=== PATIENT | female | born 1995 | race Hispanic/Latino ===

== ENCOUNTER 2017-04-16 20:42 | Inpatient (IN) | payer MEDICAID ==
[2017-04-16] MEDS ORDERED: Sodium Chloride 0.9% 1,000 ML IV SCH ×2 (21:00→22:15)
[2017-04-16 21:11] LABS: ADD MANUAL DIFF? NO
[2017-04-16 21:17] LABS: BASO # 0.08 K/mm3 (0.0-2.0); EOS # 0.2 (0.0-0.7); GRAN # 4.09 (1.4-6.5); GRAN % 51.5 % (50.0-68.0); HEMATOCRIT 38.6 % (36.0-48.0); LYMPH % 37.3 % (22.0-35.0); MEAN CELL VOLUME 83.9 fL (80.0-105.0); MEAN CORPUSCULAR HEMOGLOBIN 28.7 pg (25.0-35.0); MEAN CORPUSCULAR HGB CONC 34.2 g/dl (31.0-37.0); MEAN PLATELET VOLUME 10.2 fl (7.0-11.0); MONO # 0.7 (0.1-0.6); MONO % 8.2 % (1.0-6.0); PLATELET COUNT 251 10^3/uL (120.0-450.0); RED CELL DISTRIBUTION WIDTH 13.3 % (11.5-14.5); WHITE BLOOD COUNT 7.9 10^3/ul (4.5-11.0)
--- NOTE | 2017-04-16 21:18 | ED PDOC ---
Arrival/HPI - General Chief Complaint: Psychiatric Evaluation Time Seen by Provider: 04/16/17 20:47 Historian: Patient - History of Present Illness Narrative History of Present Illness (Text): 04/16/17 21:13 Christina Ovalle is a 22 year old female, with a history of depression and anxiety, presents to the emergency department following an overdose on unknown amount of Buspar, Wellbutrin and Remeron an hour prior to arrival. Patient states she was feeling very depressed, and therefore overdosed on "handful" of medication. Denies any homicidal ideation. Denies any fever, chills, headache, dizziness, chest pain, shortness of breath, nausea, vomiting, or any other complaints at this time. Time/Duration: 1 hour Symptom Onset: Sudden Context: Home Past Medical History - Provider Review Nursing Documentation Reviewed: Yes - Cardiac Hx Cardiac Disorders: No - Pulmonary Hx Respiratory Disorders: No - Neurological Hx Neurological Disorder: No - HEENT Hx HEENT Disorder: No - Renal Hx Renal Disorder: No - Endocrine/Metabolic Hx Endocrine Disorders: No - Hematological/Oncological Hx Blood Disorders: No - Integumentary Hx Dermatological Disorder: No - Musculoskeletal/Rheumatological Hx Musculoskeletal Disorders: Yes Other/Comment: scoliosis - Gastrointestinal Hx Gastrointestinal Disorders: No - Genitourinary/Gynecological Hx Genitourinary Disorders: Yes Other/Comment: PCOS - Psychiatric Hx Psychophysiologic Disorder: Yes Hx Anxiety: Yes Hx Depression: Yes Hx Substance Use: No - Surgical History Hx Orthopedic Surgery: Yes (R ANKLE R/T FX) Family/Social History - Physician Review Nursing Documentation Reviewed: Yes Family/Social History: No Known Family HX Smoking Status: Never Smoked Hx Alcohol Use: Yes Frequency of alcohol use: Socially Hx Substance Use: No Allergies/Home Meds Allergies/Adverse Reactions: Allergies No Known Allergies Allergy (Verified 04/16/17 20:46) Home Medications: Home Meds Medication Instructions Recorded Confirmed Buspirone HCl [Buspirone HCl] 15 mg PO DAILY 04/16/17 04/16/17 Mirtazapine [Remeron] 15 mg PO DAILY 04/16/17 04/16/17 Review of Systems - Physician Review All systems were reviewed & negative as marked: Yes - Review of Systems Constitutional: Normal. absent: Fatigue, Fevers Respiratory: Normal. absent: SOB, Cough Cardiovascular: Normal. absent: Chest Pain, Palpitations Gastrointestinal: Normal. absent: Abdominal Pain, Diarrhea, Nausea, Vomiting Genitourinary Female: Normal Neurological: Normal. absent: Headache, Dizziness Psychiatric: Depression, Suicidal Ideation, Other (overdose ) Physical Exam Vital Signs Reviewed: Yes Vital Signs Temp Pulse Resp BP Pulse Ox 04/16/17 20:47 97.5 F L 88 16 99/65 L 98 Temperature: Afebrile Blood Pressure: Hypotensive Pulse: Regular Respiratory Rate: Normal Appearance: Positive for: Well-Appearing Pain Distress: None Mental Status: Positive for: Alert and Oriented X 3 - Systems Exam Head: Present: Atraumatic, Normocephalic Pupils: Present: PERRL Extroacular Muscles: Present: EOMI Conjunctiva: Present: Normal Mouth: Present: Moist Mucous Membranes Respiratory/Chest: Present: Clear to Auscultation, Good Air Exchange. No: Respiratory Distress, Accessory Muscle Use Cardiovascular: Present: Regular Rate and Rhythm, Normal S1, S2. No: Murmurs Abdomen: Present: Normal Bowel Sounds. No: Tenderness, Distention, Peritoneal Signs Upper Extremity: Present: Normal Inspection. No: Cyanosis, Edema Lower Extremity: Present: Normal Inspection. No: Edema Neurological: Present: GCS=15, CN II-XII Intact, Speech Normal, Motor Func Grossly Intact, Normal Sensory Function Skin: Present: Warm, Dry, Normal Color. No: Rashes Psychiatric: Present: Alert, Oriented x 3, Suicidal Ideation. No: Homicidal Ideation Medical Decision Making ED Course and Treatment: 04/16/17 21:19 Impression: A 22 year old female who presents to the emergency department for overdose. Plan: -- EKG -- Alcohol level -- Drug Screen -- Actidose -- IV fluids -- HCG -- Urinalysis -- Reassess and disposition Progress Notes: 04/16/17 21:20 Case discussed with Poison control. Recommends repeat EKG every 4 hours, and administer activated charcoal. EKG reviewed by me: NSR @ 98 bpm. Possible left atrial enlargement. 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 Accepts patient under hospitalist service. - Lab Interpretations Lab Results: 04/16/17 21:05 04/16/17 21:05 Lab Results 04/16/17 21:05: Phosphorus 3.8, Magnesium 2.2, Total Creatine Kinase 71 04/16/17 21:05: Alcohol, Quantitative < 10 04/16/17 21:05: Salicylates < 1 L, Acetaminophen < 10.0 L 04/16/17 21:05: Sodium 141, Potassium 3.0 L, Chloride 107, Carbon Dioxide 23, Anion Gap 14, BUN 12, Creatinine 0.7, Est GFR ( Amer) > 60, Est GFR (Non- Af Amer) > 60, Random Glucose 118 H, Calcium 9.7, Total Bilirubin 0.5, AST 23, ALT 25, Alkaline Phosphatase 41, Total Protein 7.7, Albumin 4.7, Globulin 3.0, Albumin/Globulin Ratio 1.6 04/16/17 21:05: WBC 7.9, RBC 4.60, Hgb 13.2, Hct 38.6, MCV 83.9, MCH 28.7, MCHC 34.2, RDW 13.3, Plt Count 251, MPV 10.2, Gran % 51.5, Lymph % (Auto) 37.3 H, [place] % (Auto) 8.2 H, Eos % (Auto) 2.0, Baso % (Auto) 1.0, Gran # 4.09, Lymph # 3.0, [place] # 0.7 H, Eos # 0.2, Baso # 0.08 I have reviewed the lab results: Yes - EKG Interpretation Interpreted by ED Physician: Yes Type: 12 lead EKG - Medication Orders Current Medication Orders: Sodium Chloride (Sodium Chloride 0.9%) 1,000 mls @ 150 mls/hr IV .[id number] [facility] Last Admin: 04/17/17 05:19 Dose: 150 mls/hr Lorazepam (Ativan) 2 mg IVP Q2H PRN; Protocol PRN Reason: Rigors Ondansetron HCl (Zofran Inj) 4 mg IVP Q6H PRN PRN Reason: Nausea/Vomiting Discontinued Medications Charcoal (Actidose 50 Gm/240 Ml Susp) 50 gm PO STAT STA Stop: 04/16/17 21:20 Last Admin: 04/16/17 21:30 Dose: 50 gm Charcoal/Sorbitol (Actidose/Sorbitol 50gm/240 Ml Susp) Confirm Administered Dose 50 gm .ROUTE .STK-MED ONE Stop: 04/16/17 21:27 Last Admin: 04/16/17 22:10 Dose: Sodium Chloride (Sodium Chloride 0.9%) 1,000 mls @ 1,000 mls/hr IV .Q1H SUJEY Last Admin: 04/16/17 21:08 Dose: 1,000 mls/hr Potassium Chloride (Potassium Chloride 20 Meq/100 Ml) 20 meq in 100 mls @ 50 mls/hr IVPB ONCE ONE Stop: 04/16/17 23:28 Last Admin: 04/16/17 22:51 Dose: Sodium Chloride (Sodium Chloride 0.9%) 1,000 mls @ 100 mls/hr IV .Q10H SUJEY Potassium Chloride (Potassium Chloride 10 Meq/100 Ml) 10 meq in 100 mls @ 100 mls/hr IVPB Q2H SUJEY Stop: 04/17/17 01:29 Last Admin: 04/17/17 00:57 Dose: 100 mls/hr Pantoprazole Sodium (Protonix Inj) 40 mg IVP STAT STA Stop: 04/16/17 22:15 Last Admin: 04/16/17 23:06 Dose: 40 mg Potassium Chloride (Potassium Chloride Oral Soln) 20 meq PO STAT STA Stop: 04/16/17 22:25 Last Admin: 04/16/17 23:07 Dose: 20 meq - Solomonibe Statement The provider has reviewed the documentation as recorded by the Nicky Esquivel Provider Attestation: All medical record entries made by the Nicky were at my direction and personally dictated by me. I have reviewed the chart and agree that the record accurately reflects my personal performance of the history, physical exam, medical decision making, and the department course for this patient. I have also personally directed, reviewed, and agree with the discharge instructions and disposition. Disposition/Present on Arrival - Present on Arrival Any Indicators Present on Arrival: No History of DVT/PE: No History of Uncontrolled Diabetes: No Urinary Catheter: No History of Decub. Ulcer: No History Surgical Site Infection Following: None - Disposition Have Diagnosis and Disposition been Completed?: Yes Diagnosis: Overdose of antidepressant Disposition: HOSPITALIZED Disposition Time: 21:45 Condition: FAIR
[2017-04-16] MEDS ORDERED: Charcoal 50 gm/240 ml Susp PO STA (21:19)
[2017-04-16 21:26] LABS: ALB/GLOB RATIO 1.6 (1.1-1.8); ALKALINE PHOSPHATASE 41 U/L (38-133); ALT/SGPT 25 U/L (7-56); AST/SGOT 23 U/L (15-39); BILIRUBIN,TOTAL 0.5 mg/dL (0.2-1.3); BLOOD UREA NITROGEN 12 mg/dL (7-21); CALCIUM 9.7 mg/dL (8.4-10.5); CARBON DIOXIDE 23 mmol/L (21-33); CHLORIDE 107 mmol/L (98-107); GFR AFRICAN-AMERICAN > 60; GLUCOSE,RANDOM 118 mg/dL (70-110); SODIUM 141 mmol/L (132-148); TOTAL PROTEIN 7.7 g/dL (5.8-8.3)
--- NOTE | 2017-04-16 22:07 | CP.PCM.HP ---
History of Present Illness - History of Present Illness History of Present Illness: Reason for ICU evaluation/CC: intentional drug overdose with suidical ideation HPI: 22 y/o female who presents to the ED after taking a "handful" unknown amount of her depression medications which include Buspar, Wellbutrin and Remeron. Patient states she wanted to harm herself and felt really depressed however would not elaborate on what caused her to feel depressed and take a handful of her medications. She denies any previous suicide attempts or attempts to harm herself. She took the pills at approximately 8:00pm (slightly one hour prior to my seeing her in the ED). She offers complaints of feeling nauseous and having fine tremors after taking all the pills otherwise denies any complaints of chest pain, palpitations, abdominal pain, shortness of breath , headache, fever or diarrhea. She has just gotten finished drinking her activated charcoal as I approached her bedside. PMHx: Major Depressive disorder Allergies: NKDA Fam Hx: Father and paternal grandfather - Lung Cancer; Father with DM Meds: Buspar 15mg po daily Wellbutrin 150mg po bid Remeron 15mg po daily Soc Hx: denies tobacco use; social etoh use; denies illicit drug use Present on Admission - Present on Admission Any Indicators Present on Admission: No Review of Systems - Review of Systems Review of Systems: As per HPI otherwise negative for 12 point ROS Past Patient History - Past Social History Smoking Status: Never Smoked Chewing Tobacco Use: No Cigar Use: No Alcohol: Social Drugs: Denies - CARDIAC Hx Cardiac Disorders: No - PULMONARY Hx Respiratory Disorders: No - NEUROLOGICAL Hx Neurological Disorder: No - HEENT Hx HEENT Problems: No - RENAL Hx Chronic Kidney Disease: No - ENDOCRINE/METABOLIC Hx Endocrine Disorders: No - HEMATOLOGICAL/ONCOLOGICAL Hx Blood Disorders: No - INTEGUMENTARY Hx Dermatological Problems: No - MUSCULOSKELETAL/RHEUMATOLOGICAL Hx Musculoskeletal Disorders: Yes Other/Comment: scoliosis - GASTROINTESTINAL Hx Gastrointestinal Disorders: No - GENITOURINARY/GYNECOLOGICAL Hx Genitourinary Disorders: Yes Other/Comment: PCOS - PSYCHIATRIC Hx Psychophysiologic Disorder: Yes Hx Anxiety: Yes Hx Depression: Yes Hx Substance Use: No - SURGICAL HISTORY Hx Orthopedic Surgery: Yes (R ANKLE R/T FX) Meds Allergies/Adverse Reactions: Allergies Allergy/AdvReac Type Severity Reaction Status Date / Time No Known Allergies Allergy Verified 04/16/17 20:46 Physical Exam - Constitutional Appears: Non-toxic, No Acute Distress - Head Exam Head Exam: ATRAUMATIC, NORMOCEPHALIC - Eye Exam Eye Exam: EOMI Pupil Exam: Mydriatic, PERRL - ENT Exam ENT Exam: Mucous Membranes Moist, Normal Exam - Neck Exam Neck exam: Positive for: Normal Inspection - Respiratory Exam Respiratory Exam: Clear to Auscultation Bilateral, NORMAL BREATHING PATTERN. absent: Rhonchi, Wheezes, Respiratory Distress - Cardiovascular Exam Cardiovascular Exam: Tachycardia, +S1, +S2 - GI/Abdominal Exam GI & Abdominal Exam: Normal Bowel Sounds. absent: Guarding, Rebound, Tenderness - Rectal Exam Rectal Exam: Deferred - Extremities Exam Extremities exam: Positive for: normal inspection. Negative for: calf tenderness - Neurological Exam Neurological exam: Alert, CN II-XII Intact, Oriented x3, Reflexes Normal - Psychiatric Exam Psychiatric exam: Depressed, Flat Affect - Skin Skin Exam: Dry, Intact, Normal Color, Warm Results - Vital Signs Recent Vital Signs: Last Vital Signs Temp 97.5 F L 04/16/17 20:47 Pulse 88 04/16/17 20:47 Resp 16 04/16/17 20:47 BP 99/65 L 04/16/17 20:47 Pulse Ox 98 04/16/17 20:47 - Labs Result Diagrams: 04/16/17 21:05 04/16/17 21:05 Labs: Laboratory Results - last 24 hr 04/16/17 04/16/17 04/16/17 21:05 21:05 21:05 WBC 7.9 RBC 4.60 Hgb 13.2 Hct 38.6 MCV 83.9 MCH 28.7 MCHC 34.2 RDW 13.3 Plt Count 251 MPV 10.2 Gran % 51.5 Lymph % (Auto) 37.3 H [place] % (Auto) 8.2 H Eos % (Auto) 2.0 Baso % (Auto) 1.0 Gran # 4.09 Lymph # 3.0 [place] # 0.7 H Eos # 0.2 Baso # 0.08 Sodium 141 Potassium 3.0 L Chloride 107 Carbon Dioxide 23 Anion Gap 14 BUN 12 Creatinine 0.7 Est GFR ( Amer) > 60 Est GFR (Non-Af Amer) > 60 Random Glucose 118 H Calcium 9.7 Total Bilirubin 0.5 AST 23 ALT 25 Alkaline Phosphatase 41 Total Protein 7.7 Albumin 4.7 Globulin 3.0 Albumin/Globulin Ratio 1.6 Salicylates < 1 L Acetaminophen < 10.0 L Alcohol, Quantitative 04/16/17 21:05 WBC RBC Hgb Hct MCV MCH MCHC RDW Plt Count MPV Gran % Lymph % (Auto) [place] % (Auto) Eos % (Auto) Baso % (Auto) Gran # Lymph # [place] # Eos # Baso # Sodium Potassium Chloride Carbon Dioxide Anion Gap BUN Creatinine Est GFR ( Amer) Est GFR (Non-Af Amer) Random Glucose Calcium Total Bilirubin AST ALT Alkaline Phosphatase Total Protein Albumin Globulin Albumin/Globulin Ratio Salicylates Acetaminophen Alcohol, Quantitative < 10 - EKG Data EKG Interpreted by: Myself EKG shows normal: Sinus rhythm (NSR @ 98 bpm; QTc 469) Assessment & Plan - Assessment and Plan (Free Text) Assessment: 22 y/o female with a PMHx MDE presents to the ED after attempting suicide by pill ingestion using her depression medications. Patient will be kept in the ICU overnight for further monitoring and care. Plan: Neuro: AAOx3; no neurological deficits, patient is responsive and does not appear stuporous or lethargic; will monitor neurochecks Q4h Pulm: protecting her airway; saturating well on room air, will monitor for now CVS: slight tachycardia (sinus) noted; QTc is 469, will obtain EKG's Q4h to assess for any QT prolongation as recommended by Poison control (Nurse Howie Durand spoke w/Poison control who recommended activated charcoal, Ativan prn agitation or serotonin syndrome and close EKG monitoring for QT prolongation. Will place on IVF hydration with normal saline @ 150cc/hr GI: Patient given activated charcoal however has not vomited yet; will give a 1 time dose of protonix 40mg po and start her on a po diet for tomorrow Renal: will monitor i's and o's, daily bmp; electrolytes show hypokalemia of 3.0 , so we'll replace it with po and IV potassium. Heme: no acute issues at this time, will monitor daily cbc's ID: no acute issues at this time endo: Will check a TSH to r/o hypothyroidism Psych: 1:1 observation for suicidal ideation; psych consult with Dr. Hart. Will monitor for Serotonin Syndrome, currently only mild serotonin toxicity noted with tremors otherwise no large fasciculations or clonus that would classify as moderate/severe under the Didier Serotonin Toxicity scale; will give Ativan as needed and apply cooling blanket if she develops hyperthermia. Will check CK now and in the AM to rule out any potential for rhabdomyolysis. case discussed with Dr. Hutchins in detail all labs and images available thus far have been reviewed myself Total time of care: 45 minutes
[2017-04-16] MEDS ORDERED: Potassium Chloride 20 mEq/15 ml LIQ UD PO STA (22:24)
[2017-04-16 22:58] LABS: MAGNESIUM 2.2 mg/dL (1.7-2.2); PHOSPHOROUS 3.8 mg/dL (2.5-4.5)
[2017-04-16] MEDS: Sodium Chloride 0.9% 1,000 ML IV SCH (23:06)
[2017-04-17 00:29] VITALS: BMI 19.7
[2017-04-17] MEDS: Sodium Chloride 0.9% 1,000 ML IV SCH (05:19)
[2017-04-17 05:23] LABS: PH,URINE 7.5 (4.7-8.0); URINE BILIRUBIN NEGATIVE (NEGATIVE); URINE BLOOD LARGE (NEGATIVE); URINE GLUCOSE (UA) NEGATIVE (NEGATIVE); URINE KETONE NEGATIVE (NEGATIVE); URINE LEUKOCYTE ESTERASE TRACE Leu/uL (NEGATIVE); URINE PROTEIN NEGATIVE mg/dL (<30 mg/dL); URINE UROBILINOGEN 0.2 E.U./dL (<1 E.U./dL)
[2017-04-17 05:25] LABS: URINE APPEARANCE SL CLOUDY (CLEAR); URINE COLOR YELLOW (YELLOW)
[2017-04-17 05:32] LABS: URINE EPITHELIAL CELLS 0 - 2 /hpf (0-5)
[2017-04-17 05:34] LABS: URINE BACTERIA FEW (NEG)
[2017-04-17 06:19] LABS: ADD MANUAL DIFF? NO
[2017-04-17 06:23] LABS: BASO # 0.04 K/mm3 (0.0-2.0); BASO % 0.9 % (0.0-3.0); EOS % 0.9 % (1.5-5.0); GRAN # 3.18 (1.4-6.5); GRAN % 68.9 % (50.0-68.0); HEMATOCRIT 35.5 % (36.0-48.0); LYMPH % 21.7 % (22.0-35.0); MEAN CELL VOLUME 83.9 fL (80.0-105.0); MEAN CORPUSCULAR HEMOGLOBIN 28.1 pg (25.0-35.0); MEAN CORPUSCULAR HGB CONC 33.5 g/dl (31.0-37.0); MEAN PLATELET VOLUME 10.4 fl (7.0-11.0); MONO # 0.4 (0.1-0.6); MONO % 7.6 % (1.0-6.0); PLATELET COUNT 221 10^3/uL (120.0-450.0); RED CELL DISTRIBUTION WIDTH 13.5 % (11.5-14.5); WHITE BLOOD COUNT 4.6 10^3/ul (4.5-11.0)
[2017-04-17 06:32] LABS: INR 1.11 (0.93-1.08)
[2017-04-17 06:35] LABS: ALB/GLOB RATIO 1.6 (1.1-1.8); ALKALINE PHOSPHATASE 34 U/L (38-133); ALT/SGPT 26 U/L (7-56); AST/SGOT 19 U/L (15-39); BILIRUBIN,TOTAL 0.4 mg/dL (0.2-1.3); BLOOD UREA NITROGEN 6 mg/dL (7-21); CALCIUM 9.1 mg/dL (8.4-10.5); CARBON DIOXIDE 22 mmol/L (21-33); CHLORIDE 112 mmol/L (95-110); GFR AFRICAN-AMERICAN > 60; GLUCOSE,RANDOM 75 mg/dL (70-110); POTASSIUM 3.6 mmol/L (3.6-5.0); SODIUM 145 mmol/L (132-148); TOTAL PROTEIN 6.6 g/dL (5.8-8.3)
[2017-04-17] MEDS ORDERED: Sodium Chloride 0.9% 1,000 ML IV SCH (07:28)
[2017-04-17 08:26] LABS: MAGNESIUM 2.1 mg/dL (1.7-2.2); PHOSPHOROUS 4.7 mg/dL (2.5-4.5)
--- NOTE | 2017-04-17 09:09 | CON ---
DATE: 04/17/2017 The patient is seen and examined at bedside. This is a 22-year-old lady with history of polycystic ovary syndrome and depression who came to ICU last night with Wellbutrin overdose. The patient received charcoal treatment in ER and vomited. Her toxicology screen came back negative. Her electrolytes were supplemented. Her vital signs were monitored and were relatively stable except for mild tachycardia throughout the night. She is alert, awake and oriented. Her EKG did not show significant QTc prolongation and QRS widening. She had some minor twitching in the very beginning, however, not compatible with description of seizures as per nighttime nurse clinical. The patient did not have nausea, vomiting, diarrhea or constipation. No chest pain, no shortness of breath. No fever, chills, sweats. PAST MEDICAL HISTORY: Polycystic ovary syndrome, depression. MEDICATIONS AT HOME: BuSpar. ALLERGIES: NKDA. FAMILY HISTORY: Noncontributory. SOCIAL HISTORY: No alcohol or illicit drug abuse. No tobacco smoking. REVIEW OF SYSTEMS: Review of 12 organ systems, other than mentioned in history of present illness, is negative. PHYSICAL EXAMINATION: VITAL SIGNS: Heart rate 93, blood pressure 116/63, respiratory rate 18, oxygen saturation 98%. HEAD AND NECK: Atraumatic. LUNGS: Clear to auscultation bilaterally. HEART: Regular rate and rhythm. S1, S2 normal. ABDOMEN: Soft, nontender, nondistended. MUSCULOSKELETAL: No C/C/E. NEUROLOGIC: The patient moves all extremities spontaneously. SKIN: Moist. PSYCHIATRIC: The patient is alert and oriented x 3. Admits to having self- harm ideations that led to drug overdose. A 1:1 is ordered and psychiatry consult is pending. LABORATORIES: Sodium 145, potassium 3.6, chloride 112, carbon dioxide 22, BUN 6 , creatinine 0.6, glucose 75, AST 19, ALT 26. WBC 4.6, hemoglobin 11.9, platelet count 221. INR 111. MEDICATIONS: Ativan p.r.n., Zofran p.r.n., normal saline 150 mL per hour. EKG showed QTc 451, QRS 78, no specific ischemic changes, mild sinus tachycardia with heart rate 101. ASSESSMENT AND PLAN: This is a 22-year-old lady with depression on BuSpar, who was admitted with intentional drug overdose without significant complications. Her electrolytes within normal limits. QRS and QTc are not prolonged. There are no conduction abnormalities. The patient is alert and oriented x 3. No clinical signs of seizures. The patient is hemodynamically and respiratory quijano stable. Poison control was contacted. We will continue to target euvolemia, euglycemia, normothermia and oxygen saturation more than 90%. We will continue with deep venous thrombosis and gastrointestinal prophylaxis. We will continue with psychiatry consult and 1:1 observation until then. Okay to downgrade to med-surg. ccm time 40 min Rome Brewster MD cc: [id number] TT: 04/17/2017 09:08:41 Confirmation # [id number] Dictation # [id number] en MTDD
[2017-04-17] MEDS ORDERED: Potassium Chloride 20 mEq ER Tab PO ONE (09:14)
--- NOTE | 2017-04-17 13:43 | CP.PCM.PN ---
<Carlos Lebron - Last Filed: 04/17/17 13:31> Subjective - Date & Time of Evaluation Date of Evaluation: 04/17/17 Time of Evaluation: 10:00 - Subjective Subjective: Patient seen and examined with medical attending. Patient appears upset. Complains of mild abdominal pain. Denies headaches/dizziness, palpitations, chest pain, SOB, dysuria. No fasciculation or tremors noted. Denies n/v. Objective - Vital Signs/Intake and Output Vital Signs (last 24 hours): Temp Pulse Resp BP Pulse Ox 99.4 F 122 H 14 113/66 97 04/17/17 02:00 04/17/17 09:50 04/17/17 09:50 04/17/17 09:00 04/17/17 09:50 Intake and Output: 04/17/17 04/17/17 06:59 18:59 Intake Total 1250 Output Total 1100 Balance 150 - Medications Medications: Current Medications Sodium Chloride (Sodium Chloride 0.9%) 1,000 mls @ 75 mls/hr IV .[id number] SUJEY Last Admin: 04/17/17 07:33 Dose: 75 mls/hr Lorazepam (Ativan) 2 mg IVP Q2H PRN; Protocol PRN Reason: Rigors Ondansetron HCl (Zofran Inj) 4 mg IVP Q6H PRN PRN Reason: Nausea/Vomiting - Labs Labs: 04/17/17 05:20 04/17/17 05:20 PT 12.0 Seconds (9.9-11.8) H 04/17/17 05:20 INR 1.11 (0.93-1.08) H 04/17/17 05:20 APTT 25.0 Seconds (23.7-30.8) 04/17/17 05:20 - Constitutional Appears: Other (Sad) - Head Exam Head Exam: NORMOCEPHALIC - Eye Exam Eye Exam: EOMI - ENT Exam ENT Exam: Mucous Membranes Moist - Respiratory Exam Respiratory Exam: NORMAL BREATHING PATTERN - Cardiovascular Exam Cardiovascular Exam: Tachycardia, +S1, +S2 - GI/Abdominal Exam GI & Abdominal Exam: Soft. absent: Distended, Firm, Guarding, Rigid, Tenderness - Extremities Exam Extremities Exam: absent: Pedal Edema - Neurological Exam Neurological Exam: Alert, Awake, Oriented x3 - Psychiatric Exam Additional comments: Sad patient seen crying, stating she will not do this again - Skin Skin Exam: Normal Color, Warm Assessment and Plan - Assessment and Plan (Free Text) Assessment: 22F with a PMHx of major depressive disorder presents to the ED after attempting suicide by pill ingestion using her depression medications. Patient will be kept in the ICU overnight for further monitoring and care. Plan: 1. Major depressive disorder -Psychiatry consulted, recs appreciated -1:1 observation for suicidal ideation -Monitor for Serotonin Syndrome 2. Drug overdose, intoxication -As per Poison Control recommendations, serial EKGs done. -No apparent QTc prolongation -Creatine Kinase: 60 -Will monitor patient for 24 hours, if no acute events will clear patient medically for possible [place] [facility] [place] 3.Hypokalemia -resolved, replete prn 4.DVT ppx -SCDs Assessment and Plan discussed with attending. <Bari BUTTS,Khris - Last Filed: 04/17/17 14:22> Objective - Vital Signs/Intake and Output Vital Signs (last 24 hours): Temp Pulse Resp BP Pulse Ox 99.4 F 122 H 14 113/66 97 04/17/17 02:00 04/17/17 09:50 04/17/17 09:50 04/17/17 09:00 04/17/17 09:50 Intake and Output: 04/17/17 04/17/17 06:59 18:59 Intake Total 1250 Output Total 1100 Balance 150 - Medications Medications: Current Medications Sodium Chloride (Sodium Chloride 0.9%) 1,000 mls @ 75 mls/hr IV .[id number] SUJEY Last Admin: 04/17/17 07:33 Dose: 75 mls/hr Lorazepam (Ativan) 2 mg IVP Q2H PRN; Protocol PRN Reason: Rigors Ondansetron HCl (Zofran Inj) 4 mg IVP Q6H PRN PRN Reason: Nausea/Vomiting - Labs Labs: 04/17/17 05:20 04/17/17 05:20 PT 12.0 Seconds (9.9-11.8) H 04/17/17 05:20 INR 1.11 (0.93-1.08) H 04/17/17 05:20 APTT 25.0 Seconds (23.7-30.8) 04/17/17 05:20 Attending/Attestation - Attestation I have personally seen and examined this patient.: Yes I have fully participated in the care of the patient.: Yes I have reviewed all pertinent clinical information, including history, physical exam and plan: Yes Notes (Text): 04/17/17 14:20 Patient was seen and examined with medical data analyst .Agreed with resident assessment and plan. 22F with a PMH of major depressive disorder presents to the ED after attempting suicide by pill ingestion using her depression medications, Patient is hemodynamically stable, will observe for 24 hour, if remain stable, no arrhythmia on tele, will be cleared medically.Psychiatry has recommended inpatient Psychiatric treatment for her depression and suicidal ideation. Management plan was discussed in detail with patient Education was provided.
--- NOTE | 2017-04-17 17:38 | CON ---
DATE: 04/17/2017 Shortly, patient is a 22-year-old female, self-reported history of depression and anxiety. The patient was admitted to ICU status post overdose on psychotropic medications. Psych consult was called for evaluation of mood symptoms as well as to rule status post suicidal attempt. The patient was seen today in the ICU together with a medical student as well as medical residents. The patient presented to be alert and oriented, flat and tearful affect. The patient seems to be well reliable historian, but seems to be withholding information because patient does not want to be admitted to e psychiatric inpatient unit. The patient reported that of her father anniversary is coming th is April. The patient reported that she has stress at job. The patient reported being harassed by he r boss. The patient reported at the day of admission, patient was overwhelmed and she decided to etta e medications, Wellbutrin as well as Remeron as well as BuSpar. The patient denied that she wanted t o kill herself, but she reported that she wanted to have some strong medication in order to help her with her overwhelming feelings. The patient reported that she was stressed out at work. Reported th at she was feeling anxious on and off. The patient denied hearing voices, denied seeing things, jeff ed paranoid ideations. The patient does not present to be psychotic. The patient reported that she stopped going to [facility] and she stopped taking her medications for the past 3 months. The patient reported that she has stable relationship with the boyfriend at present moment . The patient denied substance abuse and denied smoking. VITAL SIGNS: Reviewed, stable. Temperature 98.8, pulse is 112, blood pressure 139/99, respirations 20, oxygen saturation is 99%. MEDICATIONS: Reviewed. The patient is on Ativan 2 mg IV push q. 2 hours as needed, Zofran 4 mg IV p ush for nausea, vomiting, and sodium chloride. This music writer would implement Sonata at the nighttime a s needed for insomnia and Klonopin as needed for anxiety. PAST PSYCHIATRIC HISTORY: The patient denied being admitted to the psychiatric inpatient unit. Jeff ed suicidal attempts in the past. MENTAL STATUS EXAMINATION: The patient presented to have marginal personal hygiene. Seems to be car eless about her appearance, has long uncombed hair. Tearful affect. Intense eye contact. Speech wa s low volume, normal rate, tone, quality, and quantity. Mood described "I'm feeling fine. I regret for what I have done." Thought process was coherent and goal directed. Thought content: The yulia rdz denied visual, auditory, tactile hallucinations. Denied paranoid ideations. The patient denied th oughts of harming herself or others, denied intent or plan. Insight and judgment improving. Impulse s well controlled. The patient gave permission to speak to her girlfriend. As per girlfriend, lisa shane was doing well later on prior to coming to the hospital. The patient had argument with her boyfri end and patient's girlfriend did not have any concerns about patient's safety. The patient's girlfri end's name is , phone number [phone]. MEDICATIONS: Confirmed by patient's pharmacy. The patient was on BuSpar 15 mg daily, bupropion 75 m g daily, filled in October, and mirtazapine 15 mg at the nighttime, filled in October. IMPRESSION: Rule out adjustment disorder, rule out major depressive disorder. PLAN: Continue current management. The patient contracted for safety, 1:1 was discontinued. The xiomara fowler was offered admission to the psychiatric inpatient unit for further observation and stabilizati on. The patient did not want to stay in the hospital. The patient was prescribed Sonata at the [facility] for insomnia 5 mg as well as Klonopin 0.5 mg 3 times a day as needed for anxiety. If patient w ill refuse to stay in the hospital, will initiate screening process. We will monitor patient closely . Thank you very much for letting me participate in the care of your patient. Edyta Riggs MD cc: [phone] TT: 04/17/2017 17:37:58 Confirmation # [id number] Dictation # [id number] en
--- NOTE | 2017-04-18 01:41 | CARD ---
APPROVED REPORT EKG Measurement Heart [id number] <Conclusion> Normal sinus rhythm Possible Left atrial enlargement T wave abnormality,nonspecific Abnormal ECG
--- NOTE | 2017-04-18 01:42 | CARD ---
APPROVED REPORT EKG Measurement Heart [id number] <Conclusion> Sinus tachycardia with premature atrial complexes Otherwise normal ECG
[2017-04-18 06:40] LABS: ADD MANUAL DIFF? NO
[2017-04-18 06:48] LABS: BASO # 0.06 K/mm3 (0.0-2.0); BASO % 1.4 % (0.0-3.0); EOS # 0.3 (0.0-0.7); EOS % 7.4 % (1.5-5.0); GRAN % 45.3 % (50.0-68.0); HEMATOCRIT 35.4 % (36.0-48.0); LYMPH # 1.4 (1.2-3.4); LYMPH % 34.4 % (22.0-35.0); MEAN CELL VOLUME 85.5 fL (80.0-105.0); MEAN CORPUSCULAR HEMOGLOBIN 28.5 pg (25.0-35.0); MEAN CORPUSCULAR HGB CONC 33.3 g/dl (31.0-37.0); MEAN PLATELET VOLUME 10.3 fl (7.0-11.0); MONO # 0.5 (0.1-0.6); MONO % 11.5 % (1.0-6.0); PLATELET COUNT 220 10^3/uL (120.0-450.0); WHITE BLOOD COUNT 4.2 10^3/ul (4.5-11.0)
[2017-04-18 07:03] LABS: ALB/GLOB RATIO 1.5 (1.1-1.8); ALKALINE PHOSPHATASE 33 U/L (38-133); ALT/SGPT 28 U/L (7-56); AST/SGOT 18 U/L (15-39); BILIRUBIN,TOTAL 0.4 mg/dL (0.2-1.3); BLOOD UREA NITROGEN 5 mg/dL (7-21); CALCIUM 9.1 mg/dL (8.4-10.5); CARBON DIOXIDE 23 mmol/L (21-33); CHLORIDE 111 mmol/L (98-107); GFR AFRICAN-AMERICAN > 60; GLUCOSE,RANDOM 77 mg/dL (70-110); POTASSIUM 3.8 mmol/L (3.6-5.0); SODIUM 141 mmol/L (132-148); TOTAL PROTEIN 6.3 g/dL (5.8-8.3)
[2017-04-18 08:07] VITALS: BP 121/88; PULSE 60; RESP 99; TEMP 98.3; O2SAT 86
--- NOTE | 2017-04-18 12:17 | CP.PCM.DIS ---
<Carlos Lebron - Last Filed: 04/18/17 14:18> Provider - Provider Date of Admission: 04/16/17 21:45 Attending physician: Khris Candelaria MD Primary care physician: Errol Kaur MD Consults: Psychiatry Time Spent in preparation of Discharge (in minutes): 25 Hospital Course - Lab Results Lab Results: Most Recent Lab Values WBC 4.2 10^3/ul (4.5-11.0) L 04/18/17 06:20 RBC 4.14 10^6/uL (3.5-6.1) 04/18/17 06:20 Hgb 11.8 gm/dL (12.0-16.0) L 04/18/17 06:20 Hct 35.4 % (36.0-48.0) L 04/18/17 06:20 MCV 85.5 fL (80.0-105.0) 04/18/17 06:20 MCH 28.5 pg (25.0-35.0) 04/18/17 06:20 MCHC 33.3 g/dl (31.0-37.0) 04/18/17 06:20 RDW 14.0 % (11.5-14.5) 04/18/17 06:20 Plt Count 220 10^3/uL (120.0-450.0) 04/18/17 06:20 MPV 10.3 fl (7.0-11.0) 04/18/17 06:20 Gran % 45.3 % (50.0-68.0) L 04/18/17 06:20 Lymph % (Auto) 34.4 % (22.0-35.0) 04/18/17 06:20 [place] % (Auto) 11.5 % (1.0-6.0) H 04/18/17 06:20 Eos % (Auto) 7.4 % (1.5-5.0) H 04/18/17 06:20 Baso % (Auto) 1.4 % (0.0-3.0) 04/18/17 06:20 Gran # 1.90 (1.4-6.5) 04/18/17 06:20 Lymph # 1.4 (1.2-3.4) 04/18/17 06:20 [place] # 0.5 (0.1-0.6) 04/18/17 06:20 Eos # 0.3 (0.0-0.7) 04/18/17 06:20 Baso # 0.06 K/mm3 (0.0-2.0) 04/18/17 06:20 PT 12.0 Seconds (9.9-11.8) H 04/17/17 05:20 INR 1.11 (0.93-1.08) H 04/17/17 05:20 APTT 25.0 Seconds (23.7-30.8) 04/17/17 05:20 Sodium 141 mmol/L (132-148) 04/18/17 06:20 Potassium 3.8 mmol/L (3.6-5.0) 04/18/17 06:20 Chloride 111 mmol/L (98-107) H 04/18/17 06:20 Carbon Dioxide 23 mmol/L (21-33) 04/18/17 06:20 Anion Gap 11 (10-20) 04/18/17 06:20 BUN 5 mg/dL (7-21) L 04/18/17 06:20 Creatinine 0.7 mg/dL (0.5-1.4) 04/18/17 06:20 Est GFR ( Amer) > 60 04/18/17 06:20 Est GFR (Non-Af Amer) > 60 04/18/17 06:20 Random Glucose 77 mg/dL (70-110) 04/18/17 06:20 Calcium 9.1 mg/dL (8.4-10.5) 04/18/17 06:20 Phosphorus 4.7 mg/dL (2.5-4.5) H 04/17/17 06:00 Magnesium 2.1 mg/dL (1.7-2.2) 04/17/17 06:00 Total Bilirubin 0.4 mg/dL (0.2-1.3) 04/18/17 06:20 AST 18 U/L (15-39) 04/18/17 06:20 ALT 28 U/L (7-56) 04/18/17 06:20 Alkaline Phosphatase 33 U/L (38-133) L 04/18/17 06:20 Total Creatine Kinase 60 U/L (35-230) 04/17/17 05:20 Total Protein 6.3 g/dL (5.8-8.3) 04/18/17 06:20 Albumin 3.7 g/dL (3.0-4.8) 04/18/17 06:20 Globulin 2.5 gm/dL 04/18/17 06:20 Albumin/Globulin Ratio 1.5 (1.1-1.8) 04/18/17 06:20 Urine Color Yellow (YELLOW) 04/17/17 05:00 Urine Appearance Sl cloudy (CLEAR) 04/17/17 05:00 Urine pH 7.5 (4.7-8.0) 04/17/17 05:00 Ur Specific [place] 1.010 (1.005-1.035) 04/17/17 05:00 Urine Protein Negative mg/dL (<30 mg/dL) 04/17/17 05:00 Urine Glucose (UA) Negative mg/dL (NEGATIVE) 04/17/17 05:00 Urine Ketones Negative mg/dL (NEGATIVE) 04/17/17 05:00 Urine Blood Large (NEGATIVE) H 04/17/17 05:00 Urine Nitrate Negative (NEGATIVE) 04/17/17 05:00 Urine Bilirubin Negative (NEGATIVE) 04/17/17 05:00 Urine Urobilinogen 0.2 E.U./dL (<1 E.U./dL) 04/17/17 05:00 Ur Leukocyte Esterase Trace Ce/uL (NEGATIVE) H 04/17/17 05:00 Urine RBC 2 - 5 /hpf (0-2) 04/17/17 05:00 Urine WBC 1 - 3 /hpf (0-6) 04/17/17 05:00 Ur Epithelial Cells 0 - 2 /hpf (0-5) 04/17/17 05:00 Urine Bacteria Few (NEG) 04/17/17 05:00 Urine HCG, Qual Negative (NEGATIVE) 04/17/17 05:00 Salicylates < 1 mg/dL (2.0-20.0) L 04/16/17 21:05 Urine Opiates Screen Negative (NEGATIVE) 04/17/17 05:00 Urine Methadone Screen Negative (NEGATIVE) 04/17/17 05:00 Acetaminophen < 10.0 ug/ml (10.0-20.0) L 04/16/17 21:05 Ur Barbiturates Screen Negative (NEGATIVE) 04/17/17 05:00 Ur Phencyclidine Scrn Negative (NEGATIVE) 04/17/17 05:00 Ur Amphetamines Screen Negative (NEGATIVE) 04/17/17 05:00 U Benzodiazepines Scrn Negative (NEGATIVE) 04/17/17 05:00 U Oth Cocaine Metabols Negative (NEGATIVE) 04/17/17 05:00 U Cannabinoids Screen Negative (NEGATIVE) 04/17/17 05:00 Alcohol, Quantitative < 10 mg/dL (0-10) 04/16/17 21:05 - Hospital Course Hospital Course: 04/16: 22 y/o female who presents to the ED after taking a "handful" unknown amount of her depression medications which include Buspar, Wellbutrin and Remeron. Patient states she wanted to harm herself and felt really depressed however would not elaborate on what caused her to feel depressed and take a handful of her medications. She denies any previous suicide attempts or attempts to harm herself. She took the pills at approximately 8:00pm (slightly one hour prior to my seeing her in the ED). She offers complaints of feeling nauseous and having fine tremors after taking all the pills otherwise denies any complaints of chest pain, palpitations, abdominal pain, shortness of breath , headache, fever or diarrhea. She has just gotten finished drinking her activated charcoal as I approached her bedside. 04/17: Patient seen and examined by psychiatry who recommended klonopin TID for anxiety and Sonata for sleep. 1:1 was discontinued. Patient did not like the idea of having to stay in the hospital. At this point patient was still tearful and upset. 04/18: Patient was seen and examined, appeared better compared to prior days. Patient was not tearful and engaged in conversation. As per psychiatry recommendations patient was clear for discharge from their part. Patient was also medically stable. Patient instructed to follow up with her psychiatrist, therapists, and primary care provider. Patient to be with family members for the next two days. Above is a brief description of the patient's hospital course, for more detailed information please refer to the patient's medical records. Discharge Exam - Head Exam Head Exam: NORMOCEPHALIC - Eye Exam Eye Exam: Normal appearance - ENT Exam ENT Exam: Mucous Membranes Moist - Respiratory Exam Respiratory Exam: NORMAL BREATHING PATTERN - Cardiovascular Exam Cardiovascular Exam: +S1, +S2 - GI/Abdominal Exam GI & Abdominal Exam: Soft. absent: Distended, Guarding, Rigid, Tenderness - Neurological Exam Neurological exam: Alert, Oriented x3 - Psychiatric Exam Psychiatric exam: Normal Mood - Skin Skin Exam: Dry, Intact, Warm Discharge Plan - Follow Up Plan Condition: IMPROVED Disposition: HOME/ ROUTINE Instructions: Depression (DC), Suicide Prevention for Adults (DC), Anxiety (DC) Additional Instructions: Discharge patient to home. Follow up with psychiatrist as discussed. Report to the ED if you have any further issues. Recommend follow up TSH levels out patient Referrals: Errol Kaur MD [Primary Care Provider] - <Bari BUTTS,Khris - Last Filed: 04/18/17 14:45> Provider - Provider Date of Admission: 04/16/17 21:45 Attending physician: Khris Candelaria MD Primary care physician: Errol Kaur MD Time Spent in preparation of Discharge (in minutes): 35 Hospital Course - Lab Results Lab Results: Most Recent Lab Values WBC 4.2 10^3/ul (4.5-11.0) L 04/18/17 06:20 RBC 4.14 10^6/uL (3.5-6.1) 04/18/17 06:20 Hgb 11.8 gm/dL (12.0-16.0) L 04/18/17 06:20 Hct 35.4 % (36.0-48.0) L 04/18/17 06:20 MCV 85.5 fL (80.0-105.0) 04/18/17 06:20 MCH 28.5 pg (25.0-35.0) 04/18/17 06:20 MCHC 33.3 g/dl (31.0-37.0) 04/18/17 06:20 RDW 14.0 % (11.5-14.5) 04/18/17 06:20 Plt Count 220 10^3/uL (120.0-450.0) 04/18/17 06:20 MPV 10.3 fl (7.0-11.0) 04/18/17 06:20 Gran % 45.3 % (50.0-68.0) L 04/18/17 06:20 Lymph % (Auto) 34.4 % (22.0-35.0) 04/18/17 06:20 [place] % (Auto) 11.5 % (1.0-6.0) H 04/18/17 06:20 Eos % (Auto) 7.4 % (1.5-5.0) H 04/18/17 06:20 Baso % (Auto) 1.4 % (0.0-3.0) 04/18/17 06:20 Gran # 1.90 (1.4-6.5) 04/18/17 06:20 Lymph # 1.4 (1.2-3.4) 04/18/17 06:20 [place] # 0.5 (0.1-0.6) 04/18/17 06:20 Eos # 0.3 (0.0-0.7) 04/18/17 06:20 Baso # 0.06 K/mm3 (0.0-2.0) 04/18/17 06:20 PT 12.0 Seconds (9.9-11.8) H 04/17/17 05:20 INR 1.11 (0.93-1.08) H 04/17/17 05:20 APTT 25.0 Seconds (23.7-30.8) 04/17/17 05:20 Sodium 141 mmol/L (132-148) 04/18/17 06:20 Potassium 3.8 mmol/L (3.6-5.0) 04/18/17 06:20 Chloride 111 mmol/L (98-107) H 04/18/17 06:20 Carbon Dioxide 23 mmol/L (21-33) 04/18/17 06:20 Anion Gap 11 (10-20) 04/18/17 06:20 BUN 5 mg/dL (7-21) L 04/18/17 06:20 Creatinine 0.7 mg/dL (0.5-1.4) 04/18/17 06:20 Est GFR ( Amer) > 60 04/18/17 06:20 Est GFR (Non-Af Amer) > 60 04/18/17 06:20 Random Glucose 77 mg/dL (70-110) 04/18/17 06:20 Calcium 9.1 mg/dL (8.4-10.5) 04/18/17 06:20 Phosphorus 4.7 mg/dL (2.5-4.5) H 04/17/17 06:00 Magnesium 2.1 mg/dL (1.7-2.2) 04/17/17 06:00 Total Bilirubin 0.4 mg/dL (0.2-1.3) 04/18/17 06:20 AST 18 U/L (15-39) 04/18/17 06:20 ALT 28 U/L (7-56) 04/18/17 06:20 Alkaline Phosphatase 33 U/L (38-133) L 04/18/17 06:20 Total Creatine Kinase 60 U/L (35-230) 04/17/17 05:20 Total Protein 6.3 g/dL (5.8-8.3) 04/18/17 06:20 Albumin 3.7 g/dL (3.0-4.8) 04/18/17 06:20 Globulin 2.5 gm/dL 04/18/17 06:20 Albumin/Globulin Ratio 1.5 (1.1-1.8) 04/18/17 06:20 Urine Color Yellow (YELLOW) 04/17/17 05:00 Urine Appearance Sl cloudy (CLEAR) 04/17/17 05:00 Urine pH 7.5 (4.7-8.0) 04/17/17 05:00 Ur Specific [place] 1.010 (1.005-1.035) 04/17/17 05:00 Urine Protein Negative mg/dL (<30 mg/dL) 04/17/17 05:00 Urine Glucose (UA) Negative mg/dL (NEGATIVE) 04/17/17 05:00 Urine Ketones Negative mg/dL (NEGATIVE) 04/17/17 05:00 Urine Blood Large (NEGATIVE) H 04/17/17 05:00 Urine Nitrate Negative (NEGATIVE) 04/17/17 05:00 Urine Bilirubin Negative (NEGATIVE) 04/17/17 05:00 Urine Urobilinogen 0.2 E.U./dL (<1 E.U./dL) 04/17/17 05:00 Ur Leukocyte Esterase Trace Ce/uL (NEGATIVE) H 04/17/17 05:00 Urine RBC 2 - 5 /hpf (0-2) 04/17/17 05:00 Urine WBC 1 - 3 /hpf (0-6) 04/17/17 05:00 Ur Epithelial Cells 0 - 2 /hpf (0-5) 04/17/17 05:00 Urine Bacteria Few (NEG) 04/17/17 05:00 Urine HCG, Qual Negative (NEGATIVE) 04/17/17 05:00 Salicylates < 1 mg/dL (2.0-20.0) L 04/16/17 21:05 Urine Opiates Screen Negative (NEGATIVE) 04/17/17 05:00 Urine Methadone Screen Negative (NEGATIVE) 04/17/17 05:00 Acetaminophen < 10.0 ug/ml (10.0-20.0) L 04/16/17 21:05 Ur Barbiturates Screen Negative (NEGATIVE) 04/17/17 05:00 Ur Phencyclidine Scrn Negative (NEGATIVE) 04/17/17 05:00 Ur Amphetamines Screen Negative (NEGATIVE) 04/17/17 05:00 U Benzodiazepines Scrn Negative (NEGATIVE) 04/17/17 05:00 U Oth Cocaine Metabols Negative (NEGATIVE) 04/17/17 05:00 U Cannabinoids Screen Negative (NEGATIVE) 04/17/17 05:00 Alcohol, Quantitative < 10 mg/dL (0-10) 04/16/17 21:05 Attending/Attestation - Attestation I have personally seen and examined this patient.: Yes I have fully participated in the care of the patient.: Yes I have reviewed all pertinent clinical information, including history, physical exam and plan: Yes Notes (Text): 04/18/17 14:40 Patient was seen and examined with medical record assistant .Agreed with resident assessment and plan. 22F with a PMH of major depressive disorder presents to the ED after attempting suicide by pill ingestion using her depression medications, Patient is hemodynamically stable,no overnight issue.Patient is stable from medical point of view.Patient has been cleared by Psychiatry and she will be discharged home and will follow up with PCP and Psychiatry as out patient. Patient will need thyroid function test as out patient.This was discussed in detail with her and family. Management plan was discussed in detail with patient Education was provided.
--- NOTE | 2017-04-18 17:23 | PN ---
DATE: 04/18/2017 Shortly, the patient is a 22-year-old female with self-reported history of depression and a nxiety. The patient impulsively overdosed on her medication; please see medical team note, as well a s this typewriter repairer note for more detailed information. The patient was admitted to ICU. The patient was downgraded to the medical side. The patient was offered to stay in the psychiatric inpatient unit ye sterday; the patient declined that offer. The patient was followed up today on the medical side. e patient's aunt, Tish Alvarado, phone number [phone] as well as [phone], was next to the patient. The patient presented well. The patient seems to be remorseful about her impulsive act. T he patient denied that she wanted to and she denied that it was a suicidal attempt. As per the p miguelina's aunt, the patient gave permission to talk to her. The patient was doing very well. The pat gene was working on 2 jobs as well as was graduated from the college and she was doing very well in [employer]. As per patient's aunt it was "a shock for us that she overdosed on medications, she shi d never done this before." The patient's aunt assured this typewriter repairer that the patient will move into [facility] and she will be there for her niece. The patient wants to do that too. The patient wants to quit her job, which was a main stressor for the patient. The patient wants to be followed up with o [facility] psychiatrist and she wants to be on medications. The patient was provided with contact inf ormation for local psychiatrist, Dr. Bowers, Dr. Ross, Dr. Saavedra as well as [facility]. The patient contracted for safety. The patient also had her friend and roommate sitting n ext to her and the patient's roommate assured this typewriter repairer that they will also be there for the patien t. Meanwhile, this write educated the patient about safety plan. The patient said that in the futur e references she will call 911 or bring herself back to the hospital in case of any thoughts of overd osing on medications. The patient denied being depressed. The patient wants to be discharged in ord er "to have full life." The patient denied hearing voices, denied seeing things, denied paranoid danie ations. The patient reported that she does not feel anxious. The patient seems to have future orien bri plans. Vital signs are stable. MEDICATIONS: The patient did not ask for Klonopin, the patient did not ask for sonata. LABORATORY DATA: Were reviewed. The patient was cleared by medical team today. MENTAL STATUS EXAMINATION: The patient presented to be alert and oriented, pleasant, cooperative, mi ldly anxious. Intermittent eye contact. Speech was normal rate, tone, quality, and quantity. Mood described "I feel much better." Affect was reactive, mood congruent. Thought process was coherent a nd goal directed. Thought content: The patient denied visual, auditory, or tactile hallucinations. Denied paranoid ideations. The patient denied thoughts of harming herself or others, denied intent or plan. The patient said "it was a big mistake, I would never do that again, I learned so much from this admission, I learned that I want to live." Insight and judgment are improving. Impulses are w ell controlled. IMPRESSION: Rule out adjustment disorder. The patient's father 2 years ago and the ayan ent has job stress. The patient also has a history of a mood disorder as well as anxiety disorder. PLAN: The patient was offered to stay in the psychiatric inpatient unit. The patient declined that offer. The patient does not meet the criteria for involuntary commitment. This typewriter repairer will not init iate a screening process. The patient might benefit from medication management as well as psychother apy. Phone numbers were provided. The patient will be discharged against medical advice because thi s typewriter repairer had the impression that the patient would benefit from staying in the psychiatric inpatient unit for medication management, but the patient declined that offer. The patient will stay with her aunt, which confirmed that information and the patient seems to have a good support system. This wri ter will sign off. Should you have any questions, give me a call back. Edyta Riggs MD cc: [id number] TT: 04/18/2017 17:22:45 Confirmation # [id number] Dictation # [id number] dn
== END 2017-04-18 14:15 | disposition home or self-care (01) | DRG 449 ==
LOC: ED 20:42 → ERH 21:45 → CCU 23:33 → 5RNO 04-17 16:04
PROVIDERS: ADMIT Internal Medicine; ATTEND Internal Medicine
DX: T43.592A Poisoning by other antipsychotics and neuroleptics, intentional self-harm, initial encounter (principal); E87.6 Hypokalemia; F32.9 Major depressive disorder, single episode, unspecified; T43.292A Poisoning by other antidepressants, intentional self-harm, initial encounter; T43.022A Poisoning by tetracyclic antidepressants, intentional self-harm, initial encounter; E28.2 Polycystic ovarian syndrome; F41.9 Anxiety disorder, unspecified